=== PATIENT | male | born 1985 | race Caucasian/White ===

== ENCOUNTER 2019-03-02 14:52 | Emergency (ER) | payer SELFPAY ==
[~2019-03-02] VITALS: Ht 170.2 cm; Wt 90.9 kg
[2019-03-02] MEDS ORDERED: LIDOCAINE 5% TRANSDERMAL PATCH TD ONE (16:15)
[2019-03-02] MEDS ORDERED: IBUPROFEN 400 MG TABLET PO ONE (16:15)
[2019-03-02 16:17] VITALS: BP 129/74
== END 2019-03-02 16:49 | disposition home or self-care (01) ==
LOC: EMS 14:54
DX: S20.212A Contusion of left front wall of thorax, initial encounter (principal); S20.211A Contusion of right front wall of thorax, initial encounter; V43.52XA Car driver injured in collision with other type car in traffic accident, initial encounter; Y93.89 Activity, other specified; Y92.89 Other specified places as the place of occurrence of the external cause; Y99.8 Other external cause status

== ENCOUNTER 2023-12-20 16:44 | Emergency (ER) | payer MEDICAID ==
[~2023-12-20] VITALS: Ht 172.7 cm; Wt 112.5 kg
[2023-12-20 16:57] VITALS: BP 132/74; PULSE 78; RESP 18; TEMP 98.3; O2SAT 98
[2023-12-20 18:35] LABS: GLUCOMETER DEV NAME(LOC) ER.7; GLUCOSE,POINT OF CARE 108 MG/DL (70-110)
[2023-12-20] MEDS: IBUPROFEN 600 MG TABLET PO ONE (18:45)
[2023-12-20] MEDS: PERTUSS(ACELL),DIPH,TET/PF 0.5 ML SYRINGE [ADULT] IM. ONE (18:45)
[2023-12-20] MEDS: BACITRACIN 0.9 GM PACKET OINTMENT TP ONE (18:45)
== END 2023-12-20 18:58 | disposition home or self-care (01) ==
LOC: EMS 16:47
DX: S91.311A Laceration without foreign body, right foot, initial encounter (principal); W22.8XXA Striking against or struck by other objects, initial encounter; Y93.01 Activity, walking, marching and hiking; Y92.89 Other specified places as the place of occurrence of the external cause; Y99.8 Other external cause status
CPT/HCPCS: 82962; 90471; 90715; 99283